=== PATIENT | female | born 1985 | race Caucasian/White ===

== ENCOUNTER → 2016-05-10 | Outpatient (CLI) | payer OTHER ==
[~2016-05-10] MED LIST: BCPILLS PO; PRENTAB26 PO
[2016-05-10 16:10] LABS: URINE APPEARANCE TURBID (CLEAR); URINE BILIRUBIN NEG (NEG); URINE COLOR YELLOW; URINE EPITHELIAL CELL AUTO >30 /lpf (0-5); URINE NITRITE NEG (NEG); URINE SPECIFIC GRAVITY 1.016 (1.000-1.030); UROBILINOGEN NEG (NEG)
[2016-05-10 16:15] LABS: MANUAL MICROSCOPIC REQUIRED? NO; REVIEW REQ? NO
== END | disposition home or self-care (01) ==
LOC: C.LABSPEC 14:45
PROVIDERS: ATTEND Obstetrics & Gynecology
DX: O09.10 Supervision of pregnancy with history of ectopic pregnancy, unspecified trimester (principal)

== ENCOUNTER → 2016-05-17 | Outpatient (CLI) | payer OTHER ==
[~2016-05-17] MED LIST changes: +DOCU-94 PO; +FOLI1TAB7 PO; +IBUP-1427 PO
== END | disposition home or self-care (01) ==
LOC: C.PAPS 11:58
PROVIDERS: ATTEND Obstetrics & Gynecology
DX: O09.00 Supervision of pregnancy with history of infertility, unspecified trimester (principal)

== ENCOUNTER → 2016-05-17 | Outpatient (CLI) | payer OTHER ==
[~2016-05-17] MED LIST changes: -DOCU-94 PO; -FOLI1TAB7 PO; -IBUP-1427 PO
[2016-05-17 17:34] LABS: BASO % 0.3 %; BASO ABS # 0.03 K/uL (0-0.2); COMPLETE YES; EOS % 2.1 %; HEMATOCRIT 39.8 % (37-47); IG% 0.3 %; LYMPH % 17.6 %; MEAN CELL VOLUME 90.7 fL (80-100); MEAN CORPUSCULAR HEMOGLOBIN 32.8 pg (25-34); MEAN CORPUSCULAR HGB CONC 36.2 g/dl (32-36); MONO % 5.4 %; NEUT % 74.3 %; PLATELET COUNT 219 K/uL (130-400); RED BLOOD COUNT 4.39 M/uL (4.2-5.4); WHITE BLOOD COUNT 11.35 K/uL (4.8-10.8)
== END | disposition home or self-care (01) ==
LOC: C.LAB1850 16:33
PROVIDERS: ATTEND Obstetrics & Gynecology
DX: O20.0 Threatened abortion (principal)

== ENCOUNTER → 2016-05-17 | Outpatient (CLI) | payer OTHER ==
[~2016-05-17] MED LIST changes: +DOCU-94 PO; +FOLI1TAB7 PO; +IBUP-1427 PO
[2016-05-20 21:14] LABS: CHLAMYDIA TRACH RNA*** NOT DETECTED (NOT DETECTED); GC (NEIS GONORRHOEAE)RNA** NOT DETECTED (NOT DETECTED)
== END | disposition home or self-care (01) ==
LOC: C.LABSPEC 17:52
PROVIDERS: ATTEND Obstetrics & Gynecology
DX: O20.0 Threatened abortion (principal); O09.10 Supervision of pregnancy with history of ectopic pregnancy, unspecified trimester

== ENCOUNTER → 2016-07-11 | Outpatient (CLI) | payer OTHER ==
[2016-07-11 17:42] LABS: GTGD 50 Grams
[2016-07-16 08:58] LABS: AFP CONCENTRATION 45.3 NG/ML; AFPTS GESTATIONAL AGE 15.9 WEEKS; AFPTS INSULIN DEP DIABETIC? NO; AFPTS MATERNAL WT 147 LBS; ALPHA-FETOPROTEIN RACE CAUCASIAN=W; HISTORY OF NTD NO; REPEAT SAMPLE? NO
== END | disposition home or self-care (01) ==
LOC: C.LAB1850 15:35
PROVIDERS: ATTEND Obstetrics & Gynecology
DX: Z34.03 Encounter for supervision of normal first pregnancy, third trimester (principal)

== ENCOUNTER → 2016-08-29 | Outpatient (CLI) | payer OTHER ==
[2016-09-03 02:17] LABS: AMOXICILLIN CLASS 0; AMOXICILLIN IGE <0.10 kU/L; AMPICILLIN CLASS 0; AMPICILLIN IGE <0.10 kU/L; PENICILLIN-G CLASS 0; PENICILLIN-G IGE <0.10 kU/L; PENICILLIN-V CLASS 0; PENICILLIN-V IGE <0.10 kU/L
== END | disposition home or self-care (01) ==
LOC: C.LAB1850 12:44
PROVIDERS: ATTEND Internal Medicine Pulmonary Disease
DX: Z34.02 Encounter for supervision of normal first pregnancy, second trimester (principal); Z88.0 Allergy status to penicillin; J30.9 Allergic rhinitis, unspecified

== ENCOUNTER → 2016-10-04 | Outpatient (CLI) | payer OTHER ==
[2016-10-04 12:00] LABS: URINE APPEARANCE CLEAR (CLEAR); URINE BILIRUBIN NEG (NEG); URINE COLOR YELLOW; URINE EPITHELIAL CELL AUTO >30 /lpf (0-5); URINE NITRITE NEG (NEG); URINE SPECIFIC GRAVITY 1.022 (1.000-1.030); UROBILINOGEN NEG (NEG)
[2016-10-04 12:02] LABS: MANUAL MICROSCOPIC REQUIRED? NO; REVIEW REQ? NO
== END | disposition home or self-care (01) ==
LOC: C.LABSPEC 10:51
PROVIDERS: ATTEND Obstetrics & Gynecology
DX: Z34.02 Encounter for supervision of normal first pregnancy, second trimester (principal)

== ENCOUNTER → 2016-10-04 | Outpatient (CLI) | payer OTHER ==
[2016-10-04 12:12] LABS: HEMATOCRIT 36.6 % (37-47)
[2016-10-04 13:11] LABS: GTGD 50 Grams
== END | disposition home or self-care (01) ==
LOC: C.LAB1850 10:01
PROVIDERS: ATTEND Obstetrics & Gynecology
DX: Z34.02 Encounter for supervision of normal first pregnancy, second trimester (principal)

== ENCOUNTER 2016-11-20 11:32 | Outpatient (CLI) | payer OTHER ==
[~2016-11-20] VITALS: Ht 162.6 cm; Wt 77.1 kg
[~2016-11-20 11:32] MED LIST changes: -DOCU-94 PO; -FOLI1TAB7 PO; -IBUP-1427 PO; -PRENTAB26 PO
[2016-11-20 13:27] VITALS: Ht 162.6 cm; Wt 77.1 kg
--- NOTE | 2016-11-22 10:54 | EDITING REQUIRED CODING QUERY ---
DIAGNOSIS NEEDED To promote full compliance with coding requirements relating to patient care, physician participation is requested in all cases of ceo and co founder uncertainty. Please assist us with the question(s) below: Coding Question: The patient received care in labor and delivery on 11/20/16 as noted within the record. Please document the diagnosis that is being addressed by the medication/treatment. Provider Response: DIAGNOSIS: Abdominal trauma Thank you for your assistance, Celena Lowe - Warp Dresser
[2017-01-07] MEDS ORDERED: PRENTAB26 PO (09:32)
== END 2016-11-20 12:38 | disposition home or self-care (01) ==
LOC: C.OPB 11:32 → C.LD 11:32 → C.OPB 12:38
PROVIDERS: ATTEND Obstetrics & Gynecology
DX: O26.893 Other specified pregnancy related conditions, third trimester (principal); S39.91XA Unspecified injury of abdomen, initial encounter; Z3A.34 34 weeks gestation of pregnancy

== ENCOUNTER → 2016-11-29 | Outpatient (CLI) | payer OTHER ==
[~2016-11-29] MED LIST changes: +DOCU-94 PO; +FOLI1TAB7 PO; +IBUP-1427 PO; +PRENTAB26 PO
== END | disposition home or self-care (01) ==
LOC: C.LABSPEC 13:46
PROVIDERS: ATTEND Obstetrics & Gynecology
DX: Z34.03 Encounter for supervision of normal first pregnancy, third trimester (principal)

== ENCOUNTER 2017-01-06 19:14 | Outpatient (CLI) | payer OTHER ==
[~2017-01-06] VITALS: Ht 162.6 cm; Wt 80.0 kg
[~2017-01-06 19:14] MED LIST changes: -DOCU-94 PO; -FOLI1TAB7 PO; -IBUP-1427 PO; -PRENTAB26 PO
[2017-01-06 21:03] VITALS: Ht 162.6 cm; Wt 80.0 kg
[2017-01-07] MEDS ORDERED: PRENTAB26 PO ×2 (09:32)
== END 2017-01-06 21:24 | disposition home or self-care (01) ==
LOC: UNDOADMIN 19:14 → C.LD 19:14 → C.OPB 19:14 → UNDODISIN 21:24 → EDSTATUS 01-07 12:00
PROVIDERS: ATTEND Obstetrics & Gynecology
DX: O48.0 Post-term pregnancy (principal); Z3A.00 Weeks of gestation of pregnancy not specified

== ENCOUNTER 2017-01-07 07:45 | Inpatient (IN) | payer OTHER ==
[~2017-01-07] VITALS: Ht 162.6 cm; Wt 85.0 kg
[2017-01-07] MEDS ORDERED: LACTATED RINGER'S 1000ML 1,000 ML IV PRN (08:04)
[2017-01-07] MEDS ORDERED: LACTATED RINGER'S 1000ML 500 ML IV PRN ×2 (08:04→14:46)
[2017-01-07] MEDS ORDERED: OXYTOCIN 30 UNITS/500ML NSS IV PRN ×2 (08:15→22:15)
[2017-01-07] MEDS ORDERED: PENICILLIN G POTASSIUM IV 6 MU in DEXTROSE 5% 250ML 250 ML IV ONE (08:30)
[2017-01-07 08:35] LABS: HEMATOCRIT 39.7 % (37-47); MEAN CELL VOLUME 94.5 fL (80-100); MEAN CORPUSCULAR HEMOGLOBIN 33.8 pg (25-34); MEAN CORPUSCULAR HGB CONC 35.8 g/dl (32-36); MEAN PLATELET VOLUME 9.7 fL (7.4-10.4); PLATELET COUNT 167 K/uL (130-400)
[2017-01-07] MEDS: LACTATED RINGER'S 1000ML 1,000 ML IV SCH ×2 (08:44→18:57)
[2017-01-07 09:16] VITALS: Ht 162.6 cm; Wt 85.0 kg
[2017-01-07] MEDS ORDERED: PRENTAB26 PO ×2 (09:32)
[2017-01-07] MEDS ORDERED: INFLUENZA ADMINISTRATION CHARGE ONE (12:30)
[2017-01-07] MEDS ORDERED: INFLUENZA VIRUS QUAD VACCINE 0.5 ML SYR IM. ONE (12:30)
[2017-01-07] MEDS: PENICILLIN G POTASSIUM IV 3 MU in DEXTROSE 5% 100ML 100 ML IV PRN ×2 (12:55→16:54)
[2017-01-07] MEDS ORDERED: FENTANYL 2MCG/ML ROPIV 1.25MG/ML 100ML BAG EPI ONE (14:05)
[2017-01-07] MEDS ORDERED: BUPIVACAINE 0.25% 30 ML VIAL ONE (14:05)
[2017-01-07] MEDS ORDERED: EpHEDrine SULFATE INJ 50 MG/ML AMP ONE (14:05)
[2017-01-07] MEDS ORDERED: FENTANYL CITRATE INJ 50 MCG/1 ML 2 ML VIAL ONE (14:06)
[2017-01-07] MEDS ORDERED: NALOXONE HCL INJ 1 MG in SODIUM CHLORIDE 0.9% 1000ML 1,000 ML IV PRN (14:46)
[2017-01-07] MEDS ORDERED: NALBUPHINE HCL INJ 10 MG/ML AMP IV PRN (15:00)
[2017-01-07] MEDS ORDERED: ONDANSETRON INJ 2 MG/ML 2 ML VIAL IV PRN (15:00)
[2017-01-07] MEDS ORDERED: PROMETHAZINE HCL INJ 6.25 MG in SODIUM CHLORIDE 0.9% 50ML 50 ML IV PRN (15:00)
[2017-01-07] MEDS ORDERED: NALOXONE HCL INJ 0.4 MG/1 ML VIAL/CARP IV PRN (15:00)
[2017-01-07] MEDS ORDERED: FENTANYL 2MCG/ML ROPIV 1.25MG/ML 100ML BAG EPI PRN (15:00)
[2017-01-07] MEDS ORDERED: EpHEDrine SULFATE INJ 50 MG/ML AMP IV PRN (15:00)
[2017-01-07] MEDS ORDERED: DiphenhydrAMINE HCL 50 MG/ML VIAL IV PRN (15:00)
[2017-01-07] MEDS ORDERED: CALCIUM CARBONATE 500 MG CHEWABLE PO PRN (21:45)
[2017-01-07] MEDS ORDERED: ACETAMINOPHEN 325 MG TAB PO PRN (22:15)
[2017-01-07] MEDS ORDERED: OXYCODONE/ACETAMINOPHEN 5-325 TAB PO PRN (22:15)
[2017-01-07] MEDS ORDERED: LANOLIN OINT EXT PRN ×2 (22:15)
[2017-01-07] MEDS ORDERED: ACETAMINOPHEN/CODEINE 300/30MG TAB PO PRN ×2 (22:15)
[2017-01-07] MEDS ORDERED: DIPHTHERIA/TETANUS/PERTUSSIS 0.5 ML SYR/VIAL IM. ONE (22:15)
[2017-01-07] MEDS ORDERED: BENZOCAINE 20% AER SPR 82.5 GM CAN EXT PRN (22:15)
[2017-01-07] MEDS ORDERED: HYDROCORTISONE ACETATE 25 MG SUPP PR PRN (22:15)
[2017-01-07] MEDS ORDERED: SUPERCREAM 0.870 % 15GM JAR EXT PRN (22:15)
--- NOTE | 2017-01-07 23:13 | DELIVERY SUMMARY ---
DATE OF OPERATION: 01/07/2017 Shital was induced initially with a cervical Batista placed by Dr. Everett the night before. She arrived with a Batista. Pitocin was started. We were able to remove the Batista and she was approximately almost 3 cm. Eventually, she received an epidural and membranes were ruptured. It should be noted that we started penicillin as well in this patient for group B strep prophylaxis. Her induction reason was for 41 and half weeks and it was her first baby. Labor was uncomplicated. She rapidly progressed to 9 cm, then progressed to 10, was able to push. Baby was delivered in left occiput anterior position. Clear fluid. No nuchal cord. Mouth suctioned and the nares was bulbed. Baby was delivered by gentle traction, no excessive force used. A live vigorous infant. Cord clamped and cut. Cord gases obtained. Cord blood obtained. Placenta removed with gentle traction. A second-degree tear was repaired with 3-0 Vicryl. Sponge and instrument counts were correct. I attest to the content of the Intraoperative Record and any orders documented therein. Any exception s are noted below.
[2017-01-08] VITALS (7 sets, daily range): BP systolic 108–123; BP diastolic 60–85; PULSE 84–104; TEMP 36.6–37.2; O2SAT 98
--- NOTE | 2017-01-08 03:14 | Anesthesia Procedure Note ---
Anesthesia Epidural Removal Nt Date & Time Jan 08, 2017 at 03:14 Vital Signs Pain Intensity: 0.0 Vital Signs Past 12 Hours Date Time Temp Pulse Resp B/P (MAP) Pulse Ox O2 Delivery O2 Flow Rate FiO2 01/08/17 01:00 37.2 104 18 123/83 (96) Room Air Notes Mental Status: alert / awake / arousable, participated in evaluation Nausea / Vomiting: adequately controlled Pain: adequately controlled Airway Patency, RR, SpO2: stable & adequate BP & HR: stable & adequate Hydration State: stable & adequate Neuraxial Anesthesia: was administered Anesthetic Complications: no major complications apparent, pt satisfied with anesthetic care Epidural: removed without complications, with tip intact
--- NOTE | 2017-01-08 07:49 | Progress Note ---
Subjective Jan 08, 2017. Subjective conversation w/ patient, physical exam, chart review, lab review Ambulation: ambulating normally Diet Tolerance: Regular Diet Lochia: Moderate Feeding Type: Breast Feeding Objective Vital Signs Date Time Temp Pulse Resp B/P (MAP) Pulse Ox O2 Delivery O2 Flow Rate FiO2 01/08/17 03:15 36.6 88 24 119/71 (87) Room Air 01/08/17 03:15 Room Air 01/08/17 01:00 37.2 104 18 123/83 (96) Room Air Physical Exam General Appearance: WELL-APPEARING Respiratory/Chest: lungs clear Abdomen: non tender Fundus: Firm Extremities: no calf tenderness Laboratory Results Last 24 Hours Test 01/07/17 08:24 01/08/17 07:31 White Blood Count 15.30 K/uL Red Blood Count 4.20 M/uL Hemoglobin 14.2 g/dL Hematocrit 39.7 % Mean Corpuscular Volume 94.5 fL Mean Corpuscular Hemoglobin 33.8 pg Mean Corpuscular Hemoglobin Concent 35.8 g/dl RDW Standard Deviation 47.6 fL RDW Coefficient of Variation 13.9 % Platelet Count 167 K/uL Mean Platelet Volume 9.7 fL Assessment and Plan Post- Day#: 1 Continue Routine Care: ccc
[2017-01-08 08:11] LABS: HEMATOCRIT 32.4 % (37-47)
[2017-01-08] MEDS: DOCUSATE SODIUM 100 MG CAP PO SCH ×2 (09:08→20:05)
[2017-01-08] MEDS: PRENATAL VITAMIN TAB PO SCH (09:08)
[2017-01-08] MEDS: IBUPROFEN 600 MG TAB PO PRN ×3 (10:02→20:06)
[2017-01-08] MEDS ORDERED: BISACODYL 5 MG TABEC PO SCH (20:00)
--- NOTE | 2017-01-08 20:09 | Discharge Instructions ---
Discharge Instructions Date of Service Jan 08, 2017. Admission Reason for Admission: Induction Discharge Discharge Diagnosis / Problem: recovery from normal delivery Discharge Goals Goal(s): Routine recovery after delivery Medications Continue Dispensed Medications: supercream, dermaplast, lansinoh Activity Recommendations Activity Limitations: per Instructions/Follow-up section . Instructions / Follow-Up Instructions / Follow-Up ACTIVITY RECOMMENDATIONS: * Gradual return to full activity over the next 2-3 weeks. * No lifting - nothing heavier than baby over the next 2-3 weeks. * Do not engage in vigorous exercise, sexual activity or sports until cleared by your physician. * Do not drive or operate any motorized equipment until cleared by your physician. * You may shower/bathe daily. MEDICATIONS: For discomfort or pain, you may use Acetaminophen (Tylenol), Ibuprofen (Advil), or Naproxen (Aleve) following the package directions. For constipation you may use Colace following the package directions. BREAST CARE: If you are not breast feeding: * Wear a supportive bra 24 hours a day for one to two weeks. * Avoid stimulating your breasts and nipples as much as possible during the first few weeks after delivery. * When taking a shower, have the warm water hit your back, not breasts. * When your breasts feel full, apply ice packs. Usually three to four times a day helps ease the discomfort. * Take a mild pain medication (Tylenol / Motrin) when you are uncomfortable. If breast feeding: * Use breast milk to lubricate nipples. Lansinoh cream may be used for sore nipples. You do not need to remove cream prior to breast feeding. If using a different brand of cream, check the label for directions regarding removal of cream prior to nursing. * Wear a supportive bra. * If having problems with breasts or breast feeding, call a insurance consultant or your health care provider. EPISIOTOMY CARE: After delivery, if you have an episiotomy (stitches), the following steps will ease discomfort and aid healing. * For the first 24 hours after delivery, place ice packs next to your episiotomy to help reduce swelling. * After the first 24 hour-period, sitz baths, either portable or in the tub, are suggested. A shower with a shower arm sprayed over the episiotomy may be comforting. * Akanksha care should be done after each voiding and bowel movement. Squirt warm water from a plastic bottle over the perineum (region of the body between the anus and urinary opening) and pat dry. * Use Dermoplast to ease discomfort. Shake container. Cowley directly over the episiotomy. Place a Tucks on a clean sanitary pad next to your episiotomy. SPECIAL CARE INSTRUCTIONS: When you are discharged from the hospital, it is important for you to follow the instructions listed below: * During the first week at home, you should be able to care for yourself and your baby. In addition, the usual light household activities are encouraged. * Limit your activities to the way you feel. Do not try to clean the house or move furniture. Be sensible. * If you actively engage in sports and have done so up until the time of your delivery, you may resume these activities as soon as you feel able. This may take up to one month or even longer. Use good judgment. * Continue to take your vitamins for at least six weeks after the of your baby. * Your diet need not be limited unless you were on a special diet before your delivery. Breast-feeding mothers need around 2500 calories per day and at least 64-80 ounces of fluid per day (8 to 10 glasses). * You should eat foods from the four major food groups. Crash diets or fad diets are to be avoided. Eating lean meats, fresh fruits and vegetables, low-fat dairy products, high fiber foods and a regular exercise program, will help you get back to your pre- weight without putting your health at risk. * Constipation is sometimes a problem after delivery. Take a mild laxative as needed. If breast feeding, Milk of Magnesia is acceptable to use. You may use a suppository or Fleets enema if no episiotomy. * A daily shower or tub bath is suggested. Be sure to thoroughly and gently dry the perineum. * A bloody vaginal discharge will usually continue until around four weeks post . A small amount of bleeding may continue for as long as six weeks. Vaginal discharge changes from the bright red bleeding after delivery to pink then brownish and finally yellowish-pink before becoming white and disappearing. * Bleeding may increase with activity. Your first period may come in 4-8 weeks. If you are breast feeding, your period may be delayed even longer. * Diablock (sex) can begin whenever both you and your partner feel comfortable and do not have any form of genital infection. It is recommended that you wait at least six weeks for internal and external healing to occur. If you have questions, please talk to your health care practitioner. A condom should be used to prevent infection and . * Foreplay, gentle intercourse and lubrication is very important the first several times to prevent pain. A water-based lubricant such as K-Y jelly or Astroglide may be used. * If you have RH negative blood and your baby is RH positive, you will receive RHOGAM by injection prior to discharge. The nurse will give you a card to keep with you that has the date and place that you received RHOGAM after delivery. * During your care, you had a Rubella screen done to check for the presence of rubella antibodies in your blood. If your test was negative, you will receive a Rubella vaccine prior to discharge. This vaccine may cause a fever, soreness at the injection site and flu-like symptoms. If these symptoms persist, notify your health care practitioner. is not advised for one month after a Rubella vaccine. * Verbalizes understanding of car seat law as reviewed with patient nursing. * Car Seat hand-out given and reviewed with patient by nursing. * Shaken baby information reviewed with patient by nursing. Call you doctor if: * Heavy bleeding (saturating several pads an hour) or passing clots the size of your fist. * A fever >101 degrees F (38.3 degrees C) on two occasions four hours apart and /or chills. * Unusual pain in the pelvic or vaginal areas. * "Baby Blues" lasting longer than two weeks. If you have any questions or concerns, call your health care practitioner at . FOLLOW UP VISIT: * Please call the office at to schedule a 6 week examination. It is important you keep this appointment. It is important for you to make arrangements for either yearly or twice yearly check-ups thereafter. Current Hospital Diet Patient's current hospital diet: Regular OB Diet Discharge Diet Recommended Diet: Regular OB Diet Pending Studies Studies pending at discharge: no Medical Emergencies . Who to Call and When: Medical Emergencies: If at any time you feel your situation is an emergency, please call 911 immediately. . Non-Emergent Contact Non-Emergency issues call your: Hospital Doctor . . "Provider Documentation" section prepared by Nasra Juarez. . VTE Core Measure Inpt VTE Proph given/why not?: Treatment not indicated
[2017-01-09] MEDS: IBUPROFEN 600 MG TAB PO PRN ×2 (05:29→13:23)
[2017-01-09] MEDS ORDERED: BISACODYL 10 MG SUPP PR PRN (07:00)
[2017-01-09] MEDS: DOCUSATE SODIUM 100 MG CAP PO SCH (07:42)
[2017-01-09] MEDS: PRENATAL VITAMIN TAB PO SCH (07:42)
--- NOTE | 2017-01-09 07:59 | OB/GYN Progress Note ---
MAT MAN Progress Note Date of Service Jan 09, 2017. Subjective conversation w/ patient, physical exam, chart review, lab review Ambulation: ambulating normally Voiding: no voiding problems Passing Gas: Yes Diet Tolerance: Regular Diet Lochia: Small Feeding Type: Breast Feeding (with bottle supplement) Pain: Minimal cramping Notes: Found pt resting comfortably, no overnight events, no acute c/o. Review of Systems Constitutional: No fever, No chills Respiratory: No cough, No shortness of breath Cardiac: No chest pain, No edema Abdomen: No nausea, No vomiting, No diarrhea Female : No dysuria Objective Vital Signs Date Time Temp Pulse Resp B/P (MAP) Pulse Ox O2 Delivery O2 Flow Rate FiO2 01/08/17 23:35 98 Room Air 01/08/17 23:35 36.9 88 20 108/67 (81) 98 Room Air 01/08/17 20:20 37.0 98 20 123/85 (98) 98 Room Air 01/08/17 16:00 36.8 84 18 116/76 (89) Room Air 01/08/17 15:30 Room Air 01/08/17 11:00 36.7 98 16 118/63 (81) Room Air Physical Exam General Appearance: WELL-APPEARING, WD/WN, NO APPARENT DISTRESS Respiratory/Chest: lungs clear, normal breath sounds, no respiratory distress Cardiovascular: regular rate, rhythm, no edema, no murmur Abdomen: normal bowel sounds, non tender, soft Fundus: Firm, Non-Tender, Relation to Umbilicus (at umbilicus) Extremities: non-tender, no pedal edema, no calf tenderness Laboratory Results Last 24 Hours Test 01/09/17 04:44 Assessment and Plan Post- Day Number: 2 Continue Routine Care: Resident Physician Supervision Note: I interviewed and examined the patient. Discussed with Dr. Yee and agree with findings and plan as documented in the note. Any exceptions or clarifications are listed here: [None] Documented By: Nasra Juarez 31F s/p VD, now PPD #2. - Blood type AB positive. GBS positive, s/p abx x2. Rubella immune. - Vital signs reviewed and stable. - Pain controlled with motrin & Tylenol. - No leg swelling or tenderness on calf palpation. Encourage ambulation. - Encourage breast feeding. - Hemoglobin pre-delivery 14.2, post-delivery 10.8. Bleeding has improved. Continue to monitor clinically. - Continue routine post-vaginal delivery care. - Pt agreed with above plan, all current questions answered. Tomás Yee MD, PGY1 Referral Manager Tracking Resident Involvement: Resident Care Provided Care Provided: OB Delivery (OB rounds)
[2017-01-09 08:00] VITALS: BP 108/69; PULSE 90; TEMP 36.5
[2017-01-09 08:35] LABS: MEAN CELL VOLUME 96.4 fL (80-100); MEAN CORPUSCULAR HEMOGLOBIN 32.5 pg (25-34); MEAN CORPUSCULAR HGB CONC 33.8 g/dl (32-36); PLATELET COUNT 147 K/uL (130-400); RED BLOOD COUNT 3.32 M/uL (4.2-5.4); WHITE BLOOD COUNT 12.21 K/uL (4.8-10.8)
[2017-01-09 15:50] VITALS: BP_DIAS 69; PULSE 90; TEMP 36.5
== END 2017-01-09 16:05 | disposition home or self-care (01) | DRG 775 ==
LOC: C.LD 07:45 → C.OBG 01-08 11:55
PROVIDERS: ADMIT Obstetrics & Gynecology; ATTEND Obstetrics & Gynecology
PROC: 0KQM0ZZ Repair Perineum Muscle, Open Approach (ICD-10-PCS; principal; 2017-01-07)
PROC: 10E0XZZ Delivery of Products of Conception, External Approach (ICD-10-PCS; principal; 2017-01-07)
PROC: 10903ZC Drainage of Amniotic Fluid, Therapeutic from Products of Conception, Percutaneous Approach (ICD-10-PCS; 2017-01-07)
PROC: 3E033VJ Introduction of Other Hormone into Peripheral Vein, Percutaneous Approach (ICD-10-PCS; 2017-01-07)
DX: O48.0 Post-term pregnancy (principal); O70.1 Second degree perineal laceration during delivery; Z22.330 Carrier of Group B streptococcus; Z3A.41 41 weeks gestation of pregnancy; Z37.0 Single live birth

== ENCOUNTER 2017-01-15 12:59 | Emergency (ER) | payer OTHER ==
[~2017-01-15] VITALS: Ht 162.6 cm; Wt 74.0 kg
[~2017-01-15 12:59] MED LIST changes: -BCPILLS PO; +PRENTAB26 PO
[2017-01-15 13:05] VITALS: TEMP 37.6; Ht 162.6 cm; Wt 74.0 kg
--- NOTE | 2017-01-15 14:33 | EMERGENCY ROOM VISIT NOTE ---
History First contact with patient: 14:24 Chief Complaint: LEG PAIN,LEG INJURY Stated Complaint: CHECK FOR DVT R LEG, PAIN, PINCHING, BURNING History of Present Illness The patient is a 31 year old female who presents to the Emergency Room with complaints of right LE pain which started the night prior to this visit. She notes the pain is in the right calf and it is now extending to the right popliteal fossa. She notes it is an ache and 6/10. Denies any chest pain, SOB or palpitations. She called her PCP as she had delivered vaginally 8 days AUTOGLAZIER and concern for DVT. She was recommended to come here for evaluation for DVT by PCP. No history of DVT/ PE and non smoker Review of Systems A 10 point review of systems was completed and was negative aside from above Past Medical/Surgical History Medical Problems: (1) Post term at 41 weeks gestation Depression, anxiety Social History Smoking Status: Never Smoker Smokeless Tobacco Use: No Alcohol Use: none Drug Use: none Marital Status: Housing Status: lives with family Occupation Status: other (currently on maternity leave) Current/Historical Medications Scheduled Docusate Sodium (Colace), 1 CAP PO BID Folic Acid (Folvite), 1 TAB PO DAILY Ibuprofen Tab (Motrin), 1 TAB PO TID Multivit/Min/Iron/Fol Ac/Pren ( Vitamin), 1 TAB PO DAILY Allergies pcn amox, celebrex, sulfa, lidoderm Physical Exam Vital Signs Date Time Temp Pulse Resp B/P (MAP) Pulse Ox O2 Delivery O2 Flow Rate FiO2 01/15/17 16:08 75 19 121/82 98 Room Air 01/15/17 15:03 75 17 122/64 97 Room Air 01/15/17 13:05 37.6 83 18 123/85 97 Room Air Physical Exam General: ambulatory, not in acute distress Skin: no rashes noted, no suspicious lesions, no areas of inflammations/ lacerations/ erythema noted CVS: S1/ S2 noted, RRR, no rubs/ murmurs noted, no cyanosis RVS: Clear throughout bilaterally, not in acute respiratory distress, no wheezing/ rales/ crackles noted Neck: inspection WNL, full ROM of neck ABD: BSx4, no pain/ tenderness on palpation, no organomegaly, fundus was not palpable MSK: inspection of all limbs WNL, motor and sensation intact in all limbs, no swelling/ pain on palpation of joints, positive right LE michelle's sign NVS: alert and orient, appropriate responses to questions Lymph: No lymphadenopathy palpable Medical Decision & Procedures ER Provider Diagnostic Interpretation: BILATERAL LOWER EXTREMITY VENOUS DOPPLER HISTORY: Acute right lower extremity swelling dvt r/o COMPARISON STUDY: None. FINDINGS: There is normal compressibility, flow, and augmentation within the right lower extremity deep venous system. IMPRESSION: No DVT within the right lower extremity. Medical Decision Differential diagnosis includes but is not limited to DVT, popliteal cyst, muscle sprain/ strain, cellulitis. Patient is a 31 yo f that is here for evaluation of DVT. As the patient was post a DDimer was deferred and a right lower extremity Doppler was ordered. A DVT was not visualized so the patient was discharged home with close follow up with PCP. Patient's pain could be secondary to a muscle strain and discussed gentle stretching and pain control with Tylenol. Blood Pressure Screening Patient's blood pressure: Normal blood pressure Impression Primary Impression: Leg pain, right Additional Impression: Muscle strain Departure Information Dispostion Home / Self-Care Condition GOOD Referrals Cipriano Arteaga DO (PCP) Patient Instructions [facility] Problem Qualifiers
[2017-01-15] MEDS ORDERED: IBUP-1427 PO (14:36)
[2017-01-15] MEDS ORDERED: FOLI1TAB7 PO (14:36)
[2017-01-15] MEDS ORDERED: DOCU-94 PO (14:36)
--- NOTE | 2017-01-15 16:36 | DIAGNOSTIC IMAGING REPORT ---
BILATERAL LOWER EXTREMITY VENOUS DOPPLER HISTORY: Acute right lower extremity swelling dvt r/o COMPARISON STUDY: None. FINDINGS: There is normal compressibility, flow, and augmentation within the right lower extremity deep venous system. IMPRESSION: No DVT within the right lower extremity. Electronically signed by: Tomás Razo M.D. 01/15/2017 4:35 PM Dictated Date/Time: 01/15/2017 4:34 PM
[2017-01-15 17:04] VITALS: BP 124/79; PULSE 76; O2SAT 98
--- NOTE | 2017-01-15 18:42 | EMERGENCY ROOM VISIT NOTE ---
History Report prepared by Robert: Timothy Gallegos Under the Supervision of: Dr. Raffi Nguyen D.O. First contact with patient: 14:24 Chief Complaint: LEG PAIN,LEG INJURY Stated Complaint: CHECK FOR DVT R LEG, PAIN, PINCHING, BURNING History of Present Illness The patient is a 31 year old female who presents to the Emergency Room with complaints of persistent right leg pain that started 24 hours ago. She notes that the pain is in her lower right calf, and extends towards the back of her knee. She adds that she delivered her baby 8 days ago. The patient denies any chest pain, shortness of breath, or palpitations. She says that she saw her primary care physician and was told to come here to rule-out a blood clot. She notes that she is a non-smoker. Source of History: patient Onset: 24 hours ago Position: leg (right) Timing: other (persistent) Associated Symptoms: No chest pain, No SOB Note: Associated symptoms: Denies palpitations. Review of Systems See HPI for pertinent positives & negatives. A total of 10 systems reviewed and were otherwise negative. Past Medical & Surgical Medical Problems: (1) Post term at 41 weeks gestation Family History Hypertension Social History Smoking Status: Never Smoker Smokeless Tobacco Use: No Alcohol Use: none Drug Use: none Marital Status: Housing Status: lives with family Occupation Status: other (currently on maternity leave) Current/Historical Medications Scheduled Docusate Sodium (Colace), 1 CAP PO BID Folic Acid (Folvite), 1 TAB PO DAILY Ibuprofen Tab (Motrin), 1 TAB PO TID Multivit/Min/Iron/Fol Ac/Pren ( Vitamin), 1 TAB PO DAILY Allergies Coded Allergies: Amoxicillin (Verified Allergy, Unknown, HIVES,OK TO GET PCN PER DR AMOR, 01/15/17) Celecoxib (Verified Allergy, Unknown, HIVES, 01/15/17) Cephalexin (Verified Allergy, Unknown, HIVES, 01/15/17) Lidocaine (Verified Allergy, Unknown, HIVES, 01/15/17) Penicillins (Verified Allergy, Unknown, OK TO GET PCN PER DR AMOR, ) Sulfa Antibiotics (Verified Allergy, Unknown, HIVES, 01/15/17) Physical Exam Vital Signs Date Time Temp Pulse Resp B/P (MAP) Pulse Ox O2 Delivery O2 Flow Rate FiO2 01/15/17 17:04 76 15 124/79 98 01/15/17 16:08 75 19 121/82 98 Room Air 01/15/17 15:03 75 17 122/64 97 Room Air 01/15/17 13:05 37.6 83 18 123/85 97 Room Air Physical Exam CONSTITUTIONAL/VITAL SIGNS: Reviewed / noted above. GENERAL: Non-toxic in appearance. INTEGUMENTARY: Warm, dry, and [place]. HEAD: Normocephalic. EYES: without scleral icterus or trauma. ENT/OROPHARYNX: clear and moist. LYMPHADENOPATHY/NECK: Is supple without lymphadenopathy or meningismus. RESPIRATORY: Lungs clear and equal. CARDIOVASCULAR: Regular rate and rhythm. GI/ABDOMEN: Soft and nontender. No organomegaly or pulsatile mass. No rebound or guarding. Normal bowel sounds. EXTREMITIES: Warm and well-perfused. BACK: No CVA tenderness. NEUROLOGICAL: Intact without focal deficits. PSYCHIATRIC: normal affect. MUSCULOSKELETAL: Normally developed with good muscle tone. Medical Decision & Procedures ER Provider Diagnostic Interpretation: US results as stated below per my review and radiologist interpretation: BILATERAL LOWER EXTREMITY VENOUS DOPPLER HISTORY: Acute right lower extremity swelling dvt r/o COMPARISON STUDY: None. FINDINGS: There is normal compressibility, flow, and augmentation within the right lower extremity deep venous system. IMPRESSION: No DVT within the right lower extremity. Electronically signed by: Tomás Razo M.D. 01/15/2017 4:35 PM Dictated Date/Time: 01/15/2017 4:34 PM ED Course 1425: Previous medical records were reviewed. The patient was evaluated in room C7. A complete history and physical examination was performed. 1640: On reevaluation, the patient is resting comfortably. I discussed the results and findings with the patient. She verbalized agreement of the treatment plan. She was discharged home. Medical Decision Differential diagnosis: Etiologies such as DVT, musculoskeletal, infection, joint effusion, trauma, lymphedema, idiopathic, CHF, as well as others were entertained.. The patient presents 8 days after delivery with a chief complaint of right leg pain. She was told to come here to get checked for DVT. Her ultrasound was negative. She was seen in conjunction with the resident. His discharge. Medication Reconcilliation Current Medication List: was personally reviewed by me Blood Pressure Screening Patient's blood pressure: Normal blood pressure Impression Primary Impression: Leg pain, right Additional Impression: Muscle strain Scribe Attestation The scribe's documentation has been prepared under my direction and personally reviewed by me in its entirety. I confirm that the note above accurately reflects all work, treatment, procedures, and medical decision making performed by me. Departure Information Dispostion Home / Self-Care Referrals Cipriano Arteaga DO (PCP) Forms HOME CARE DOCUMENTATION FORM, IMPORTANT VISIT INFORMATION Patient Instructions My [facility] Additional Instructions You have been evaluated for a DVT in the right lower leg because of pain. There was no DVT found. The pain could be from a right muscle strain. Stretching and Tylenol is recommended for pain control. If symptoms change or worsen please return to the ED Problem Qualifiers
== END 2017-01-15 17:00 | disposition home or self-care (01) ==
LOC: C.EDB 13:00 → C.EDC 17:00
DX: S86.911A Strain of unspecified muscle(s) and tendon(s) at lower leg level, right leg, initial encounter (principal); X58.XXXA Exposure to other specified factors, initial encounter; F32.9 Major depressive disorder, single episode, unspecified; F41.9 Anxiety disorder, unspecified; Z79.899 Other long term (current) drug therapy

== ENCOUNTER → 2017-07-11 | Outpatient (CLI) | payer OTHER ==
[~2017-07-11] MED LIST changes: +DOCU-94 PO; +FOLI1TAB8 PO; +IBUP-1427 PO
== END | disposition home or self-care (01) ==
LOC: C.RDSM 09:10
PROVIDERS: ATTEND Orthopaedic Surgery
DX: M79.644 Pain in right finger(s) (principal)

== ENCOUNTER → 2017-07-29 | Outpatient (CLI) | payer OTHER | END | disposition home or self-care (01) | LOC: C.LAB1850 11:34 | PROVIDERS: ATTEND Obstetrics & Gynecology | DX: O02.1 Missed abortion (principal) ==

== ENCOUNTER → 2017-08-04 | Outpatient (CLI) | payer OTHER | END | disposition home or self-care (01) | LOC: C.LAB1850 15:58 | PROVIDERS: ATTEND Obstetrics & Gynecology | DX: O09.299 Supervision of pregnancy with other poor reproductive or obstetric history, unspecified trimester (principal) ==

== ENCOUNTER → 2017-09-01 | Outpatient (CLI) | payer OTHER | END | disposition home or self-care (01) | LOC: C.LAB1850 13:19 | PROVIDERS: ATTEND Obstetrics & Gynecology | DX: O09.299 Supervision of pregnancy with other poor reproductive or obstetric history, unspecified trimester (principal) ==

== ENCOUNTER → 2017-09-03 | Outpatient (CLI) | payer OTHER | END | disposition home or self-care (01) | LOC: C.LAB1850 13:05 | PROVIDERS: ATTEND Obstetrics & Gynecology | DX: O09.299 Supervision of pregnancy with other poor reproductive or obstetric history, unspecified trimester (principal); Z3A.00 Weeks of gestation of pregnancy not specified ==

== ENCOUNTER → 2017-12-01 | Outpatient (CLI) | payer OTHER | END | disposition home or self-care (01) | LOC: C.LAB1850 13:43 | PROVIDERS: ATTEND Obstetrics & Gynecology | DX: Z34.92 Encounter for supervision of normal pregnancy, unspecified, second trimester (principal) ==

== ENCOUNTER 2018-05-19 02:55 | Inpatient (IN) ==
[2018-05-19] MEDS ORDERED: LACTATED RINGER'S 1,000 ML IV PRN ×3 (03:45→10:17)
[2018-05-19] MEDS ORDERED: OXYTOCIN 30 UNITS/500 ML BAG IV PRN ×4 (03:45→20:24)
[2018-05-19] MEDS: LACTATED RINGER'S 1,000 ML IV SCH ×3 (03:56→13:08)
[2018-05-19 04:08] LABS: Hematocrit (blood only) 39.5 % (37-47); Hemoglobin 13.7 g/dL (12.0-16.0); Mean Corpuscular Volume 94.3 fL (80-100); Mean Platelet Volume 9.6 fL (7.4-10.4); Platelet Count 170 K/uL (130-400); RDW Coefficient of Variation 14.3 % (11.5-14.5); Red Blood Count 4.19 M/uL (4.2-5.4); White Blood Count 12.52 K/uL (4.8-10.8)
[2018-05-19] MEDS ORDERED: fentaNYL citrate 100 MCG/2 ML VIAL ONE (04:11)
[2018-05-19] MEDS ORDERED: BUPIVACAINE 0.25% 30 ML VIAL ONE (04:11)
[2018-05-19] MEDS ORDERED: ePHEDrine sulfate 50 MG/ML AMP ONE (04:11)
[2018-05-19] MEDS ORDERED: fentaNYL 2MCG/ML ROPIV 1.25MG/ML 100 ML BAG EPI ONE (04:12)
[2018-05-19 04:13] LABS: Mean Corpuscular Hgb Conc 34.7 g/dL (32-36)
--- NOTE | 2018-05-19 04:57 | Anesthesiology Consultation ---
Date of Service May 19, 2018 Assessment & Plan Chart Review Chart Review: Patient NOT seen in Pre Admission Testing and Acceptable Risk for Labor Epidural Consults Requested none ASA ASA2 Proposed Anesthesia Anesthesia Type: Labor Epidural Risk / Benefits Reviewed With: PT / POA / Parent / Guardian, Accepts Plan and Informed Consent Obtained Additional Comments: Pt allergicc to lidoderm patch ( reaction to the adhesives) . Has had lidocaine injection and epidural before without problems. NPO Date Last Intake of Fluids: 05/19/18 Time Last Intake of Fluids: 02:30 Date Last Intake of Solids: 05/19/18 Time Last Intake of Solids: 02:30 History Height/Weight Height: 1.63 m Weight: 87.543 kg Allergies Allergy/AdvReac Type Severity Reaction Status Date / Time amoxicillin Allergy Unknown HIVES,OK Verified 01/15/17 14:37 TO GET PCN PER DR AMOR celecoxib Allergy Unknown HIVES Verified 01/15/17 14:37 cephalexin Allergy Unknown HIVES Verified 01/15/17 14:37 lidocaine Allergy Unknown HIVES Verified 01/15/17 14:37 Penicillins Allergy Unknown OK TO GET Verified 01/15/17 14:[address] AMOR Sulfa (Sulfonamide Allergy Unknown HIVES Verified 01/15/17 14:37 Antibiotics) Medications Home Medications Medication Instructions Recorded Confirmed Last Taken vit-iron fum-folic ac 1 tab PO DAILY 05/19/18 05/19/18 05/18/18 [ Vitamin] Active Medications Generic Name Dose Route Start Last Admin Trade Name Freq PRN Reason Stop Dose Admin Lactated Ringer's 1,000 mls @ 125 mls/hr 05/19/18 03:45 05/19/18 05:05 Lr IV 05/21/18 03:44 125 mls/hr .Q8H MEGHAN Administration Past Medical History Medical History Asthma Exercise induced. Last inhaler was about a couple of years ago Benign cyst of breast GERD (gastroesophageal reflux disease) Past Surgical History Surgical History Laceration of left ankle with tendon involvement [place] teeth extracted Past Anesthesia History No Hx of Anesthesia Complications and No Family Hx of Anesthesia Complications History of PONV No Motion Sickness Screening History of Motion Sickness: No Social History Smoking Status: Never smoker Do You Dip or Chew Tobacco: No Hx Alcohol Use: No Hx Substance Use: No Exercise / Class Metabolic Activity II 4-5 Yardwork/Stairs/Walk up hill Physical Exam Vital Signs Last Vital Signs Resp 18 05/19/18 03:24 ENMT Mouth: no TMJ abnormality and no TMJ clicking Thyromental Distance: < 3.5 Finger Breadths Mallampati Class: II Neck normal visual inspection; neck extension not limited Respiratory Auscultation: lungs clear to auscultation bilaterally Cardiovascular Rate/Rhythm: regular rate and regular rhythm Psychiatric Orientation: alert and oriented x 3 Testing Laboratory Results 05/19/18 03:57
[2018-05-19] MEDS ORDERED: ONDANSETRON INJ 2 MG/ML 2 ML VIAL IV PRN (05:28)
[2018-05-19] MEDS ORDERED: NALBUPHINE HCL INJ 10 MG/ML AMP IV PRN (05:28)
[2018-05-19] MEDS ORDERED: fentaNYL 2MCG/ML ROPIV 1.25MG/ML 100 ML BAG EPI PRN (05:28)
[2018-05-19] MEDS ORDERED: NALOXONE HCL 1 MG in SODIUM CHLORIDE 0.9% 1000ML 1,000 ML IV PRN (05:28)
[2018-05-19] MEDS ORDERED: PROMETHAZINE HCL 12.5 MG in SODIUM CHLORIDE 0.9% 50 ML IV PRN (05:28)
[2018-05-19] MEDS ORDERED: ePHEDrine sulfate 50 MG/ML AMP IV PRN (05:28)
[2018-05-19] MEDS ORDERED: DiphenhydrAMINE HCL 50 MG/ML VIAL IV PRN (05:28)
[2018-05-19] MEDS ORDERED: NALOXONE HCL 0.4 MG/1 ML VIAL/CARP IV PRN (05:28)
--- NOTE | 2018-05-19 08:07 | Obstetrical Progress Note ---
Date of Service May 19, 2018 Multiple presented in labor heart rate tracing category 1 requested epidural currently 6 cm membranes intact Physical Exam 2 Vital Signs (Past 24 Hours): Last Vital Signs Temp 37.1 C 05/19/18 07:15 Pulse 87 05/19/18 08:04 Resp 16 05/19/18 07:15 BP 147/66 H 05/19/18 08:04 Pulse Ox 99 05/19/18 08:02
[2018-05-19] MEDS ORDERED: HYDROCORTISONE ACETATE 25 MG SUPP PR PRN ×2 (15:24→20:24)
[2018-05-19] MEDS ORDERED: DIPHTHERIA/TETANUS/PERTUSSIS 0.5 ML SYR/VIAL IM ONE (15:24)
[2018-05-19] MEDS ORDERED: OXYCODONE/ACETAMINOPHEN 5mg/325mg TAB PO PRN ×2 (15:24→20:24)
[2018-05-19] MEDS ORDERED: ACETAMINOPHEN 325 MG TAB PO PRN ×2 (15:24→20:24)
[2018-05-19] MEDS ORDERED: SUPERCREAM 0.870% 15 GM JAR EXT PRN ×2 (15:24→20:24)
[2018-05-19] MEDS ORDERED: BENZOCAINE 20% AER SPR 82.5 GM CAN EXT PRN ×2 (15:24→20:24)
--- NOTE | 2018-05-19 15:46 | Anesthesia Procedure Note ---
Date of Service May 19, 2018 Anesthesia Post Epidural Note Vital Signs Vital Signs: Temp Pulse Resp BP Pulse Ox 05/19/18 15:45 101 H 143/63 H 05/19/18 15:30 206 H 132/71 05/19/18 15:17 101 H 134/66 100 05/19/18 15:15 36.6 C 99 H 20 133/69 05/19/18 15:12 102 H 100 05/19/18 15:07 111 H 98 05/19/18 15:02 143 H 95 05/19/18 15:01 126 H 154/84 H 05/19/18 15:00 109 H 20 92 05/19/18 14:57 110 H 100 05/19/18 14:55 95 H 81 L 05/19/18 14:52 97 H 100 05/19/18 14:49 113 H 87 L 05/19/18 14:47 100 H 116/79 100 05/19/18 14:42 98 H 100 05/19/18 14:37 98 H 100 05/19/18 14:32 97 H 135/83 99 05/19/18 14:27 106 H 99 05/19/18 14:22 102 H 100 05/19/18 14:17 98 H 100 05/19/18 14:15 96 H 128/85 05/19/18 14:12 92 H 100 05/19/18 14:07 96 H 100 05/19/18 14:02 94 H 100 05/19/18 14:00 91 H 139/79 05/19/18 13:57 100 H 100 05/19/18 13:52 100 H 100 05/19/18 13:47 97 H 98 05/19/18 13:46 36.9 C 95 H 16 126/78 05/19/18 13:42 90 100 05/19/18 13:37 92 H 100 05/19/18 13:32 91 H 99 05/19/18 13:31 91 H 114/68 05/19/18 13:27 92 H 99 05/19/18 13:22 103 H 99 05/19/18 13:17 95 H 99 05/19/18 13:16 94 H 121/69 05/19/18 13:12 96 H 100 05/19/18 13:07 98 H 100 05/19/18 13:02 95 H 99 05/19/18 13:00 88 113/66 05/19/18 12:57 95 H 99 05/19/18 12:52 86 97 05/19/18 12:47 86 97 05/19/18 12:45 87 117/68 05/19/18 12:42 88 97 05/19/18 12:37 83 98 05/19/18 12:32 83 99 05/19/18 12:30 36.9 C 103 H 20 121/77 05/19/18 12:27 89 99 05/19/18 12:22 100 H 98 05/19/18 12:17 95 H 98 05/19/18 12:16 86 117/68 05/19/18 12:12 91 H 97 05/19/18 12:07 92 H 99 05/19/18 12:02 94 H 97 05/19/18 12:00 93 H 20 113/64 05/19/18 11:57 95 H 98 05/19/18 11:52 91 H 97 05/19/18 11:47 96 H 98 05/19/18 11:45 90 112/62 05/19/18 11:42 93 H 97 05/19/18 11:37 93 H 99 05/19/18 11:32 89 97 05/19/18 11:30 86 113/64 05/19/18 11:27 90 97 05/19/18 11:22 91 H 98 05/19/18 11:17 85 98 05/19/18 11:15 81 113/64 05/19/18 11:12 90 98 05/19/18 11:07 92 H 99 05/19/18 11:02 87 97 05/19/18 11:00 88 113/56 L 05/19/18 10:59 36.9 C 16 05/19/18 10:57 98 H 98 05/19/18 10:52 88 97 05/19/18 10:47 85 97 05/19/18 10:46 87 110/59 L 05/19/18 10:42 85 98 05/19/18 10:37 90 98 05/19/18 10:32 85 97 05/19/18 10:30 87 16 109/61 05/19/18 10:27 85 97 05/19/18 10:22 84 98 05/19/18 10:17 87 98 05/19/18 10:16 83 115/64 05/19/18 10:12 87 98 05/19/18 10:07 91 H 98 05/19/18 10:02 86 99 05/19/18 10:00 90 20 118/67 05/19/18 09:57 88 99 05/19/18 09:52 90 98 05/19/18 09:47 86 99 05/19/18 09:45 92 H 121/65 05/19/18 09:42 86 97 05/19/18 09:37 85 98 05/19/18 09:32 86 98 05/19/18 09:30 90 121/63 05/19/18 09:27 86 99 05/19/18 09:22 90 98 05/19/18 09:17 87 98 05/19/18 09:15 91 H 121/62 05/19/18 09:12 97 H 98 05/19/18 09:07 94 H 98 05/19/18 09:02 90 98 05/19/18 09:00 88 20 115/55 L 05/19/18 08:57 81 99 05/19/18 08:52 95 H 97 05/19/18 08:47 96 H 98 05/19/18 08:45 91 H 114/60 05/19/18 08:42 86 99 05/19/18 08:37 86 99 05/19/18 08:32 84 99 05/19/18 08:31 80 20 117/64 05/19/18 08:27 84 99 05/19/18 08:22 85 98 05/19/18 08:17 84 104/56 L 100 05/19/18 08:12 88 99 05/19/18 08:07 94 H 98 05/19/18 08:04 87 16 147/66 H 05/19/18 08:02 88 99 05/19/18 07:57 88 99 05/19/18 07:52 80 98 05/19/18 07:47 82 98 05/19/18 07:45 80 113/61 05/19/18 07:42 88 98 05/19/18 07:37 82 98 05/19/18 07:32 87 97 05/19/18 07:31 82 118/66 05/19/18 07:27 86 97 05/19/18 07:22 79 97 05/19/18 07:17 93 H 98 05/19/18 07:16 77 116/59 L 05/19/18 07:15 37.1 C 16 05/19/18 07:12 90 98 05/19/18 07:07 96 H 98 05/19/18 07:02 95 H 98 05/19/18 07:00 86 102/61 05/19/18 06:57 85 97 05/19/18 06:52 81 98 05/19/18 06:47 85 110/66 99 05/19/18 06:42 80 99 05/19/18 06:37 95 H 98 05/19/18 06:32 87 98 05/19/18 06:31 37.2 C 05/19/18 06:30 85 106/61 05/19/18 06:27 76 96 05/19/18 06:22 77 97 05/19/18 06:17 82 96 05/19/18 06:16 75 109/59 L 05/19/18 06:12 79 97 05/19/18 06:07 81 99 05/19/18 06:02 80 97 05/19/18 06:00 81 107/58 L 05/19/18 05:57 76 96 05/19/18 05:56 18 05/19/18 05:52 74 98 05/19/18 05:47 75 98 05/19/18 05:46 18 05/19/18 05:42 87 121/59 L 99 05/19/18 05:41 18 05/19/18 05:37 86 99 05/19/18 05:36 18 05/19/18 05:34 91 H 113/61 05/19/18 05:32 78 110/56 L 99 05/19/18 05:31 18 05/19/18 05:30 78 122/65 05/19/18 05:28 89 111/61 05/19/18 05:27 94 H 18 98 05/19/18 05:26 86 108/58 L 05/19/18 05:25 84 114/57 L 05/19/18 05:23 90 117/58 L 05/19/18 05:22 92 H 98 05/19/18 05:17 98 H 99 05/19/18 05:12 98 H 100 05/19/18 05:08 91 H 127/81 02/19 05:07 89 100 05/19/18 05:02 88 99 05/19/18 03:24 18 05/19/18 03:13 37.2 C Notes Mental Status: alert / awake / arousable and participated in evaluation Nausea / Vomiting: adequately controlled Pain: adequately controlled Airway Patency, RR, SpO2: stable & adequate BP & HR: stable & adequate Hydration State: stable & adequate Neuraxial Anesthesia: was administered and sensory block is resolving Anesthetic Complications: no major complications apparent and Pt Satisfied with anesthetic care Epidural: Removed without complications and With tip intact
[2018-05-19] MEDS ORDERED: BISACODYL 10 MG SUPP PR PRN (20:24)
[2018-05-19] MEDS ORDERED: IBUPROFEN 600 MG TAB PO PRN (20:24)
[2018-05-19] MEDS: DOCUSATE SODIUM 100 MG CAP PO SCH (20:45)
[2018-05-19] MEDS: IBUPROFEN 600 MG TAB PO PRN (20:45)
[2018-05-19] MEDS ORDERED: DOCUSATE SODIUM 100 MG CAP PO SCH (21:00)
--- NOTE | 2018-05-19 22:10 | Delivery Summary ---
DATE OF OPERATION: 05/19/2018 The patient is a 32-year-old 3, para 1-0-1-1 white female who presented in active labor on the day that she was to be induced for post-term gestation. She received effective epidural analgesia and membranes were ruptured for clear fluid. She progressed to full dilation and pushed effectively over intact perineum for delivery of a viable male . Mouth and nasopharynx were suctioned on the perineum and the rest of the delivered easily and placed on the mother's abdomen for further attention. The was vigorously crying and moving all 4 limbs. After 30 seconds, the cord was clamped and cut. After cord blood was obtained, the placenta was expressed intact with a 3-vessel cord. A first-degree perineal laceration was repaired in the usual fashion with 3-0 chromic. Estimated blood loss was 300 mL. Mother and infant were doing well after delivery. bleeding was controlled with dilute Pitocin. I attest to the content of the Intraoperative Record and any orders documented therein. Any exception s are noted below.
[2018-05-20] MEDS: IBUPROFEN 600 MG TAB PO PRN ×4 (00:34→13:37)
--- NOTE | 2018-05-20 06:23 | Obstetrical Progress Note ---
Date of Service <Loyd Voss MD - Last Filed: 05/20/18 06:23> May 20, 2018 Assessment & Plan <Loyd Voss MD - Last Filed: 05/20/18 06:23> (1) (normal spontaneous vaginal delivery): Shital is a 32yo who presented in labor at 41+ weeks s/p with a first degree lac now PPD#1. -Blood type AB+ - Feels well today. Eating well, voiding well, ambulating well. - Bottle feeding - Pain well controlled with ibuprofen 600mg Q4H PRN. - Routine care - After discharge will have [address] Gilmore. Subjective <Loyd Voss MD - Last Filed: 05/20/18 06:23> Ambulation: ambulating normally Voiding: no voiding problems Passing Gas:: Yes Diet Tolerance:: regular diet Lochia:: Moderate Feeding Type:: bottle feeding Current Pain Level(1-10): 4 Review of Systems Denies fever, chills, sweats Denies shortness of breath, difficulty breathing, chest pain, palpitations, chest pressure. Denies breast pain. Denies dysuria. Denies headache. Physical Exam <Loyd Voss MD - Last Filed: 05/20/18 06:23> Vital Signs (Past 24 Hours) Last Vital Signs Temp 36.7 C 05/20/18 04:30 Pulse 83 05/20/18 04:30 Resp 18 05/20/18 04:30 BP 118/78 05/20/18 04:30 Pulse Ox 98 05/19/18 23:35 General: Alert, oriented. No acute distress. Cardiac: Regular rate and rhythm, no murmurs/rubs/gallops. Respiratory: Clear to auscultation anterior and posteriorly, no wheezes/rales/ rhonchi. No increased work of breathing. Symmetrical chest rise. No respiratory distress. Abdomen: Soft, nontender, nondistended. Bowel sounds present. Uterus: Uterine fundus firm, palpable 1cm below umbilicus. Lower Extremities: No lower extremity edema or swelling. No deep calf pain. Fabiola's negative bilaterally. <Nasra Ham MD, FACOG - Last Filed: 05/20/18 07:45> Co-Signing Physician Notes Resident Physician Supervision Note: I was present with Dr. Voss during the history and exam. I discussed the case with the resident and agree with the findings and plan as documented in the note. Any exceptions or clarifications are listed here: [None] Documented By: Nasra Ham MD, FACOG Resident Activity Tracking <Loyd Voss MD - Last Filed: 05/20/18 06:23> Resident Involvement: Resident Care Provided Care Provided: Adult Hospital Medicine
[2018-05-20 06:44] LABS: Hematocrit (blood only) 31.8 % (37-47); Hemoglobin 10.8 g/dL (12.0-16.0); Mean Corpuscular Volume 96.7 fL (80-100); Mean Platelet Volume 9.2 fL (7.4-10.4); Platelet Count 133 K/uL (130-400); RDW Coefficient of Variation 14.7 % (11.5-14.5); RDW Standard Deviation 51.8 fL (36.4-46.3); Red Blood Count 3.29 M/uL (4.2-5.4); White Blood Count 13.46 K/uL (4.8-10.8)
[2018-05-20] MEDS ORDERED: PRENATAL VITAMIN 1 TAB PO SCH ×2 (09:00)
[2018-05-20] MEDS: DOCUSATE SODIUM 100 MG CAP PO SCH (09:21)
[2018-05-20] MEDS ORDERED: BISACODYL 5 MG TABEC PO SCH ×2 (20:00)
[2018-05-21] MEDS ORDERED: BISACODYL 10 MG SUPP PR PRN (06:00)
== END 2018-05-20 18:25 | disposition home or self-care (01) | DRG 807 ==
LOC: OPB 02:55 → 4S1 03:00 → 4S2 17:55

== ENCOUNTER 2021-01-30 07:38 | Inpatient (IN) ==
[2021-01-30] MEDS ORDERED: OXYTOCIN 30 UNITS/500 ML BAG IV PRN ×3 (08:10→18:20)
[2021-01-30 09:01] LABS: Hemoglobin 12.7 g/dL (12.0-16.0); Mean Corpuscular Hemoglobin 33.9 pg (25-34); Mean Corpuscular Hgb Conc 34.3 g/dL (32-36); Mean Corpuscular Volume 98.7 fL (80-100); Mean Platelet Volume 9.3 fL (7.4-10.4); Platelet Count 145 K/uL (130-400); RDW Coefficient of Variation 14.3 % (11.5-14.5); RDW Standard Deviation 50.4 fL (36.4-46.3); Red Blood Count 3.75 M/uL (4.2-5.4); White Blood Count 9.92 K/uL (4.8-10.8)
[2021-01-30] MEDS: LACTATED RINGER'S 1,000 ML IV PRN ×3 (09:06→16:26)
[2021-01-30] MEDS ORDERED: BUPIVACAINE 0.25% 30 ML VIAL ONE ×2 (10:18→15:32)
[2021-01-30] MEDS ORDERED: ePHEDrine sulfate 50 MG/ML AMP ONE ×2 (10:18→15:32)
[2021-01-30] MEDS ORDERED: SODIUM CHLORIDE 0.9% INJ 10 ML VIAL ONE ×2 (10:18→15:32)
[2021-01-30] MEDS ORDERED: fentaNYL 2MCG/ML ROPIVACAINE 1.25MG/ML 100 ML BAG EPI ONE ×2 (10:19→15:32)
[2021-01-30] MEDS ORDERED: fentaNYL citrate 100 MCG/2 ML VIAL ONE ×2 (10:19→15:32)
[2021-01-30] MEDS ORDERED: BUTORPHANOL TARTRATE 1 MG/ML VIAL IV PRN (10:19)
--- NOTE | 2021-01-30 16:39 | Anesthesiology Consultation ---
Date of Service January 30, 2021 Assessment & Plan Chart Review Chart Review: Acceptable Risk for Labor Epidural Consults Requested none History Height/Weight Height: 5 ft 4 in Weight: 76.204 kg Allergies Allergy/AdvReac Type Severity Reaction Status Date / Time amoxicillin Allergy Intermediate HIVES,OK Verified 01/29/21 13:47 TO GET PCN PER DR AMOR celecoxib Allergy Intermediate HIVES Verified 01/29/21 13:47 cephalexin Allergy Intermediate HIVES Verified 01/29/21 13:47 lidocaine Allergy Intermediate HIVES Verified 01/29/21 13:47 Penicillins Allergy Intermediate OK TO GET Verified 01/29/21 13:[address] AMOR Sulfisaac (Sulfonamide Allergy Intermediate HIVES Verified 01/29/21 13:47 Antibiotics) Medications Home Medications Medication Instructions Recorded Confirmed Last Taken prenat.vits,albaro,spn-bxfw-urasq 1 tab PO DAILY 01/30/21 01/30/21 01/29/21 08:00 Active Medications Generic Name Dose Route Start Last Admin Trade Name Freq PRN Reason Stop Dose Admin Lactated Ringer's 1,000 mls @ 125 mls/hr 01/30/21 08:10 01/30/21 16:26 Lr IV 02/01/21 08:09 125 mls/hr .Q8H PRN Administration L&D Protocol Protocol Oxytocin 30 units in 500 mls @ 11 mls/hr 01/30/21 08:10 01/30/21 15:03 Pitocin IV 02/01/21 08:09 0.66 units/hr .Q24H PRN 11 mls/hr Labor Induction/Augmentation Titration Protocol 0.66 UNITS/HR Past Medical History Medical History Allergic rhinitis Anxiety Anxiety and depression Asthma Benign cyst of breast Encounter for anatomic survey GERD (gastroesophageal reflux disease) H/O miscarriage, currently Hx of varicella Supervision of normal intrauterine in multigravida Vaginitis Past Family History Family History Father Hypertension Aunt Thyroid disease Sister Endometriosis Twins, both liveborn Denies family history of Ovarian cancer Breast cancer Colorectal cancer Past Surgical History Surgical History Laceration of left ankle with tendon involvement [employer] teeth extracted Social History Smoking Status: Never smoker Hx Alcohol Use: No Hx Substance Use: No substance use type: does not use Physical Exam Vital Signs Last Vital Signs Temp 36.9 C 01/30/21 15:10 Pulse 86 01/30/21 16:38 Resp 18 01/30/21 15:10 BP 96/53 L 01/30/21 16:38 Pulse Ox 99 01/30/21 16:33 Testing Laboratory Results 01/30/21 08:27 Blood Type AB Positive 01/30/21 08:27 Antibody Screen NEGATIVE 01/30/21 08:27
[2021-01-30] MEDS ORDERED: NALOXONE HCL 1 MG in SODIUM CHLORIDE 0.9% 1000ML 1,000 ML IV PRN (16:42)
[2021-01-30] MEDS ORDERED: NALBUPHINE HCL INJ 10 MG/ML AMP IV PRN (16:42)
[2021-01-30] MEDS ORDERED: fentaNYL 2MCG/ML ROPIVACAINE 1.25MG/ML 100 ML BAG EPI PRN (16:42)
[2021-01-30] MEDS ORDERED: NALOXONE HCL 0.4 MG/1 ML VIAL/CARP IV PRN (16:42)
[2021-01-30] MEDS ORDERED: ePHEDrine sulfate 50 MG/ML AMP IV PRN (16:42)
[2021-01-30] MEDS ORDERED: diphenhydrAMINE 50 MG/ML VIAL IV PRN (16:42)
[2021-01-30] MEDS ORDERED: HYDROCORTISONE ACETATE 25 MG SUPP PR PRN (18:20)
[2021-01-30] MEDS ORDERED: oxyCODONE/ACETAMINOPHEN 5mg/325mg TAB PO PRN (18:20)
[2021-01-30] MEDS ORDERED: bisacodyL 10 MG SUPP PR PRN (18:20)
[2021-01-30] MEDS ORDERED: SUPERCREAM 0.870% 15 GM JAR EXT PRN (18:20)
[2021-01-30] MEDS ORDERED: BENZOCAINE 20% AER SPR 82.5 GM CAN EXT PRN (18:20)
[2021-01-30] MEDS ORDERED: ACETAMINOPHEN 325 MG TAB PO PRN (18:20)
--- NOTE | 2021-01-30 18:27 | History & Physical Report ---
Date of Service January 30, 2021 Assessment & Plan (1) Encounter for induction of labor: Plan: Multiparous IUP at 39 weeks for elective IOL begin pitocin augmentation of labor epidural when requested anticipate vaginal Admission and Anticipated Discharge Date Admission Date: January 30, 2021 History of Present Illness Primary Care Provider: Cipriano Arteaga Patient is a 35 yo white female EDC 02/06/21 who presents at 39 weeks for elective IOL. occasional ctns. baby has been active. no complications except for AMA. blood type -AB(+) GBS-negative Allergies Allergy/AdvReac Type Severity Reaction Status Date / Time amoxicillin Allergy Intermediate HIVES,OK Verified 01/29/21 13:47 TO GET PCN PER DR AMOR celecoxib Allergy Intermediate HIVES Verified 01/29/21 13:47 cephalexin Allergy Intermediate HIVES Verified 01/29/21 13:47 lidocaine Allergy Intermediate HIVES Verified 01/29/21 13:47 Penicillins Allergy Intermediate OK TO GET Verified 01/29/21 13:[address] AMOR Sulfisaac (Sulfonamide Allergy Intermediate HIVES Verified 01/29/21 13:47 Antibiotics) Home Medications Medication Instructions Recorded Confirmed Type prenat.vits,albaro,hnc-ylaw-fpsfa 1 tab PO DAILY 01/30/21 01/30/21 History Patient History Medical History Allergic rhinitis Anxiety Anxiety and depression Asthma Benign cyst of breast Encounter for anatomic survey GERD (gastroesophageal reflux disease) H/O miscarriage, currently Hx of varicella Supervision of normal intrauterine in multigravida Vaginitis Surgical History Laceration of left ankle with tendon involvement [place] teeth extracted Family History Father Hypertension Aunt Thyroid disease Sister Endometriosis Twins, both liveborn Denies family history of Ovarian cancer Breast cancer Colorectal cancer Social History Smoking Status: Never smoker Second Hand Exposure: No; Hx Alcohol Use: No Hx Substance Use: No Preferred Language: Syrian Communication Ability: Effective Research Mechanic Required: No Beliefs That Will Affect Care: None marital status: marital status details: Harry Kaminski ([phone] Current Living Situation: Spouse Current Living Situation Comment: Pt lives with , children, and a dog. current occupational status: unemployed current occupation: homemaker Other Information That Helps Us Care for You: No Feels Safe at Home: Yes Safety Concerns: Feels Safe At This Time Assistive Devices: None Review of Systems All systems reviewed & are unremarkable except as noted in HPI & below Physical Exam Constitutional: WD/WN, vitals as above Respiratory: normal respiratory effort, lungs clear to auscultation Cardiovascular: RRR, no murmur, no edema Psychiatric: A+Ox3, euthymic affect Genitourinary: OB Exam Abdomen: + vertex, + estimated weight (7-8 pounds) and + irregular contractions Manual OB Exam: + cervical dilation fingertip, + cervical effacement 50% and + station high OB Exam Monitor Tracing: + external FHT monitor used, + external uterine monitor used, + category I and + normal FHT variability Results & Data ([facility]) Vital Signs (Past 12 Hours) Vital Signs Temp Pulse Resp BP Pulse Ox 01/30/21 18:14 93 H 110/65 01/30/21 18:03 89 99 01/30/21 17:58 125 H 100 01/30/21 17:53 88 100 01/30/21 17:52 81 111/66 01/30/21 17:48 86 99 01/30/21 17:46 90 98/56 L 01/30/21 17:43 88 100 01/30/21 17:42 84 101/57 L 01/30/21 17:38 86 98/55 L 100 01/30/21 17:36 80 86/51 L 01/30/21 17:33 83 100 01/30/21 17:32 81 99/54 L 01/30/21 17:28 83 100 01/30/21 17:27 76 98/55 L 01/30/21 17:23 85 100 01/30/21 17:21 81 103/58 L 01/30/21 17:18 85 98 01/30/21 17:17 80 91/51 L 01/30/21 17:15 98.1 F 18 01/30/21 17:13 89 107/61 100 01/30/21 17:08 76 100 01/30/21 17:07 86 110/58 L 01/30/21 17:03 79 100 01/30/21 17:02 75 109/59 L 01/30/21 17:00 18 01/30/21 16:58 77 100 01/30/21 16:57 87 107/53 L 01/30/21 16:53 78 101/56 L 100 01/30/21 16:48 78 100 01/30/21 16:47 78 115/59 L 01/30/21 16:45 18 01/30/21 16:43 80 100 01/30/21 16:40 81 92/50 L 01/30/21 16:38 79 96/53 L 100 01/30/21 16:36 76 92/50 L 01/30/21 16:34 75 101/56 L 01/30/21 16:33 76 99 01/30/21 16:32 68 107/57 L 01/30/21 16:30 69 20 119/65 01/30/21 16:28 72 123/74 100 01/30/21 16:23 80 100 01/30/21 16:18 80 100 01/30/21 16:14 78 125/75 01/30/21 16:13 79 100 01/30/21 16:08 80 100 01/30/21 16:03 79 100 01/30/21 15:58 74 100 01/30/21 15:53 76 100 01/30/21 15:48 72 100 01/30/21 15:43 78 100 01/30/21 15:38 79 100 01/30/21 15:10 98.4 F 18 01/30/21 15:00 75 128/70 01/30/21 13:26 98.1 F 77 20 119/67 01/30/21 09:34 78 98/57 L 01/30/21 07:49 98.1 F 93 H 20 129/60 Code Status & VTE Plan VTE Prophylaxis Plan VTE Prophylaxis will be ordered: No Coding Level of Care Code None Diagnoses Encounter for induction of labor Z34.90
--- NOTE | 2021-01-30 18:28 | Delivery Summary ---
Vaginal Delivery Summary Date of Service January 30, 2021 Vaginal Delivery Summary Patient is a 35-year-old 6 para 3-0-0-3 white female EDC of 02/06/2021 who presents for elective induction at 39 weeks. Pitocin augmentation was begun, she requested epidural analgesia which was effective. At 5 cm dilation she was ruptured for clear fluid. She progressed quickly to full dilation and pushed over intact perineum for delivery of a viable female infant in direct occiput posterior presentation. The rest of the delivered easily and was placed on the mother's abdomen further attention and drying. The was vigorous and moving all 4 limbs. The placenta was expressed intact with a three-vessel cord after cord blood was obtained. Estimated blood loss is 150 cc. All counts were correct. Mother and infant were doing well after delivery. [facility] Vaginal Delivery Charge Delivery Type Details: [facility]
--- NOTE | 2021-01-30 18:46 | Anesthesia Procedure Note ---
Date of Service January 30, 2021 Anesthesia Post Epidural Note Vital Signs Vital Signs: Temp Pulse Resp BP Pulse Ox 36.7 C 70 18 109/61 99 01/30/21 17:15 01/30/21 18:43 01/30/21 17:15 01/30/21 18:43 01/30/21 18:03 Notes Mental Status: alert / awake / arousable Nausea / Vomiting: adequately controlled Pain: adequately controlled Airway Patency, RR, SpO2: stable & adequate BP & HR: stable & adequate Hydration State: stable & adequate Neuraxial Anesthesia: was administered and sensory block is resolving Anesthetic Complications: no major complications apparent and Pt Satisfied with anesthetic care Epidural: Removed without complications and With tip intact
[2021-01-30] MEDS: IBUPROFEN 600 MG TAB PO PRN (21:08)
[2021-01-30] MEDS: DOCUSATE SODIUM 100 MG CAP PO SCH (22:10)
[2021-01-31] MEDS: IBUPROFEN 600 MG TAB PO PRN ×4 (01:08→14:27)
[2021-01-31 06:36] LABS: Hemoglobin 12.6 g/dL (12.0-16.0); Mean Corpuscular Hgb Conc 34.1 g/dL (32-36); Mean Corpuscular Volume 99.7 fL (80-100); Mean Platelet Volume 9.4 fL (7.4-10.4); Platelet Count 145 K/uL (130-400); RDW Coefficient of Variation 14.2 % (11.5-14.5); RDW Standard Deviation 51.2 fL (36.4-46.3); Red Blood Count 3.71 M/uL (4.2-5.4); White Blood Count 12.04 K/uL (4.8-10.8)
--- NOTE | 2021-01-31 07:04 | Obstetrical Progress Note ---
Date of Service <Rahul Keith MD - Last Filed: 01/31/21 07:55> January 31, 2021 Assessment & Plan <Rahul Keith MD - Last Filed: 01/31/21 07:55> (1) Encounter for care and examination after delivery: PPD 1: stable, routine management * patient voiding and ambulating without difficulty * pain well controlled on analgesia * tolerating regular diet * bottle feeding * reassess d/c readiness later today <Nasra Ham MD, FACOG - Last Filed: 01/31/21 08:41> (1) Encounter for care and examination after delivery: Subjective <Rahul Keith MD - Last Filed: 01/31/21 07:55> Shital is a 35-year-old female who is now PPD #1 following spontaneous vaginal delivery at 39 weeks. Reports feeling well overall this morning. Minimal abdominal cramping & 3 out of 10 pain well managed on analgesics. Voiding +. Tolerating meals well and able to ambulate without difficulty. + passing gas but no bowel movements. Some persistent lochia with improvement this morning. Bottle feeding. Review of Systems Denies fever, chills, sweats Denies shortness of breath, difficulty breathing, chest pain, palpitations, chest pressure. Denies breast pain. Denies dysuria. Denies headache or changes in vision Physical Exam <Rahul Keith MD - Last Filed: 01/31/21 07:55> General: Alert, oriented. No acute distress. Cardiac: Regular rate and rhythm, no murmurs/rubs/gallops. Respiratory: Clear to auscultation bilaterally a/p, no wheezes/rales/rhonchi. No increased work of breathing. Symmetrical chest rise. No respiratory distress. Abdomen: Soft, nontender, nondistended. Bowel sounds present. Uterus: Uterine fundus firm, palpable at the umbilicus. Lower Extremities: No lower extremity edema or swelling. No deep calf pain. Fabiola's negative bilaterally.. Results & Data ([facility]) <Rahul Keith MD - Last Filed: 01/31/21 07:55> Vital Signs (Past 12 Hours) Vital Signs Temp Pulse Pulse Resp BP BP Pulse Ox 10/20/21 03:19 36.8 C 70 16 97/59 L 99 01/31/21 00:00 36.7 C 82 16 94/54 L 99 01/30/21 21:35 37.1 C 86 20 99/59 L 97 01/30/21 20:28 83 18 97/53 L 01/30/21 20:13 87 109/61 01/30/21 19:58 93 H 123/68 01/30/21 19:43 80 18 108/56 L 01/30/21 19:28 82 115/68 01/30/21 19:13 75 18 118/58 L <Nasra Ham MD, FACOG - Last Filed: 01/31/21 08:41> Co-Signing Physician Notes Resident Physician Supervision Note: I interviewed and examined the patient. Discussed with Dr. Keith and agree with findings and plan as documented in the note. Any exceptions or clarifications are listed here: [None] Documented By: Nasra Ham MD, FACOG Resident Activity Tracking <Rahul Keith MD - Last Filed: 01/31/21 07:55> Resident Involvement: Resident Care Provided Care Provided: OB Delivery
[2021-01-31] MEDS ORDERED: PRENATAL VITAMIN 1 TAB PO SCH (08:00)
[2021-01-31] MEDS: DOCUSATE SODIUM 100 MG CAP PO SCH (08:37)
[2021-01-31] MEDS ORDERED: DIPHTHERIA/TETANUS/PERTUSSIS 0.5 ML SYR/VIAL IM ONE (09:00)
[2021-01-31] MEDS ORDERED: METHYLERGONOVINE MALEATE 0.2 MG TAB PO STA (14:14)
--- NOTE | 2021-01-31 14:18 | Communication Note ---
Date of Service: January 31, 2021 Patient has decided she wants to go home. She and Dr. gilmore talked about her having a script for methergine in case her bleeding significantly increased like it did after her last baby. Per nursing, her bleeding is currently scant. I sent a script to the office for metherogine 0.2 mg tid for three days per my discussion this am with Dr. Gilmore and will give one dose of 0.2 prior to discharge. 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 She was advised only to use if her bleeding picks up significantly--she is not to just take it now. If she fills the script, she is to call the office so we are aware of what is happening. she expresses understanding.
[2021-01-31] MEDS ORDERED: bisacodyL 5 MG TABEC PO SCH (20:00)
== END 2021-01-31 18:05 | disposition home or self-care (01) | DRG 807 ==
LOC: 4S1 07:38 → 4S2 21:16